=== PATIENT | male | born 1970 | race Hispanic/Latino ===

== ENCOUNTER 2017-03-10 21:26 | Observation (INO) | payer SELFPAY ==
[2017-03-10] MEDS ORDERED: Nitroglycerin 2% Ointment 1 INCH/1 GM Packet ONE (21:51)
[2017-03-10 21:56] LABS: #Basophils 0.1 thou/uL (0.0-0.2); #Eosinphils 0.1 thou/uL (0.0-0.7); #Lymphocytes 4.3 thou/uL (1.20-3.40); #Monocytes 0.5 thou/uL (0.11-0.59); #Neutrophils 4.3 thou/uL (1.40-6.50); %Basophils 1.2 % (0.0-1.0); %Eosinophils 1.4 % (0.0-10.0); %Lymphocytes 45.7 % (21.0-51.0); %Monocytes 5.5 % (0.0-10.0); Hematocrit 46.8 % (42.0-52.0); Mean Platelet Volume 6.6 fL (7.4-10.4); Red Blood Cell (RBC) Count 5.28 mill/uL (4.70-6.10); White Blood Cell (WBC) Count 9.3 thou/uL (4.8-10.8)
--- NOTE | 2017-03-10 22:02 | RAD ---
PORTABLE CHEST ONE VIEW 03/10/17 at 9:54 p.m. HISTORY: Chest pain, shortness of breath. FINDINGS: The heart size is borderline. The right hemidiaphragm is elevated. No focal areas of consolidation, pneumothorax, rebecca pulmonary edema or pleural effusions are seen. IMPRESSION: No acute process. POS: [facility]
[2017-03-10 22:10] LABS: ALT (SGPT) 199 U/L (8-55); AST (SGOT) 103 U/L (5-34); Alkaline Phosphatase 119 U/L (40-150); Anion Gap 16 mmol/L (10-20); BUN (Urea Nitrogen) 19 mg/dL (8.9-20.6); Bilirubin, Total 0.6 mg/dL (0.2-1.2); CK (CPK) 256 U/L (30-200); Calc. Creatinine Clearance 0 mL/min (70-130); Calcium 10.1 mg/dL (7.8-10.44); Carbon Dioxide 26 mmol/L (22-29); Chloride 102 mmol/L (98-107); Estimated GFR-MDRD 90; Globulin 3.6 g/dL (2.4-3.5); Lipase 59 U/L (8-78); Protein, Total 8.1 g/dL (6.0-8.3)
[2017-03-10 22:11] LABS: Troponin I Less than 0.010 ng/mL (< 0.028)
[2017-03-11 01:10] LABS: Troponin I Less than 0.010 ng/mL (< 0.028)
[2017-03-11 03:17] VITALS: BMI 27.1
[2017-03-11] MEDS ORDERED: Morphine 2 MG/ML SYRINGE SLOW IVP PRN (03:19)
[2017-03-11 04:57] LABS: #Basophils 0.1 thou/uL (0.0-0.2); #Eosinphils 0.1 thou/uL (0.0-0.7); #Lymphocytes 3.5 thou/uL (1.20-3.40); #Monocytes 0.6 thou/uL (0.11-0.59); #Neutrophils 3.9 thou/uL (1.40-6.50); %Basophils 0.9 % (0.0-1.0); %Eosinophils 0.9 % (0.0-10.0); %Lymphocytes 43.1 % (21.0-51.0); Hematocrit 46.7 % (42.0-52.0); Red Blood Cell (RBC) Count 5.08 mill/uL (4.70-6.10); White Blood Cell (WBC) Count 8.2 thou/uL (4.8-10.8)
[2017-03-11] MEDS ORDERED: HumaLOG 300 UNITS/3 ML VIAL SC PRN ×2 (05:14)
[2017-03-11] MEDS ORDERED: Dextrose 5% in Water 1,000 ML IV PRN (05:14)
[2017-03-11] MEDS ORDERED: Dextrose 50% Abboject 50 ML SYRINGE SLOW IVP PRN (05:14)
[2017-03-11 05:18] LABS: ALT (SGPT) 166 U/L (8-55); AST (SGOT) 80 U/L (5-34); Alkaline Phosphatase 90 U/L (40-150); Anion Gap 12 mmol/L (10-20); BUN (Urea Nitrogen) 19 mg/dL (8.9-20.6); Bilirubin, Total 0.5 mg/dL (0.2-1.2); Calc. Creatinine Clearance 144 mL/min (70-130); Calcium 9.4 mg/dL (7.8-10.44); Carbon Dioxide 29 mmol/L (22-29); Chloride 103 mmol/L (98-107); Estimated GFR-MDRD Greater than 90; Globulin 3.1 g/dL (2.4-3.5); Protein, Total 7.3 g/dL (6.0-8.3)
[2017-03-11] MEDS ORDERED: Acetaminophen 325 MG TAB PO PRN (06:24)
[2017-03-11] MEDS ORDERED: Loperamide HCl 2 MG CAP PO PRN (07:36)
[2017-03-11] MEDS ORDERED: Ondansetron HCl/PF 4 MG/2 ML Vial IVP PRN (07:36)
[2017-03-11] MEDS ORDERED: Zolpidem Tartrate 5 MG TAB PO PRN (07:36)
[2017-03-11] MEDS ORDERED: Milk Of Magnesia 30 ML UDCUP PO PRN (07:36)
[2017-03-11] MEDS ORDERED: Ondansetron ODT 4 MG TAB PO PRN (07:36)
[2017-03-11] MEDS ORDERED: Senokot 8.6 MG TAB PO PRN (07:36)
[2017-03-11] MEDS ORDERED: HYDROcodone/Acetaminophen 5/325 mg Tablet PO PRN (07:36)
[2017-03-11] MEDS ORDERED: Mag-Al 1200 mg/1200 mg/30 ML UDCUP PO PRN (07:36)
--- NOTE | 2017-03-11 08:18 | ULT ---
PRELIMINARY REPORT/[facility]/EMERGENCY AFTER HOURS PROCEDURE: EXAM: US Abdomen Limited, Right Upper Quadrant CLINICAL HISTORY: 47 years old, male; Right upper quadrant (ruq) andabd pain, n / v, SOB TECHNIQUE: Real-time ultrasound of the right upper quadrant with image documentation. COMPARISON: No relevant prior studies available. FINDINGS: Liver: Liver fatty infiltration. Patent portal vein with hepatopetal flow. No intrahepatic bile duct dilation. Gallbladder: Contracted gallbladder. Cholelithiasis. No gallbladder wall thickening or pericholecyst ic fluid. Common bile duct: Unremarkable as visualized. No stones. No dilation. Pancreas: Pancreatic tail is not well-visualized, otherwise normal pancreas. Right kidney: Unremarkable. No stones. No solid mass. No hydronephrosis. Inferior vena cava: Normal caliber upper IVC. IMPRESSION: 1. Contracted gallbladder with cholelithiasis. No gallbladder wall thickening or pericholecystic flu id. 2. No biliary tract dilatation. Thank you for allowing us to participate in the care of your patient. Dictated and Authenticated by: Martin Tripathi MD 03/11/2017 12:21 AM Central Time ([place] \T\ [place]) FINAL REPORT GALLBLADDER ULTRASOUND: FINDINGS/IMPRESSION: I agree with the above-provided preliminary interpretation provided above. Cholelithiasis. Gallbladder is contracted. Heterogeneous echotexture of the liver may relate to fatty infiltration. Correlate with hepatic fun ction enzymes. POS: [facility]
[2017-03-11] MEDS ORDERED: Fentanyl 250 MCG/5 ML VIAL ONE (10:08)
[2017-03-11] MEDS ORDERED: Midazolam HCl 2 mg/2 ml Vial ONE (10:08)
[2017-03-11] MEDS ORDERED: Bupivacaine HCl 0.5%/Epinephrine 1:200,000/PF 30 ml Vial ONE (10:10)
[2017-03-11] MEDS ORDERED: Iothalamate Meglumine 60% 50 ML VIAL FS ONE (10:10)
[2017-03-11] MEDS: Docusate 100 MG CAP PO SCH ×2 (10:29→20:45)
[2017-03-11] MEDS: Famotidine/PF 20 mg/2ml Vial SLOW IVP SCH ×2 (10:29→20:47)
[2017-03-11] MEDS ORDERED: Promethazine HCl 25 MG/ML VIAL SLOW IVP PRN (10:36)
[2017-03-11] MEDS ORDERED: HYDROmorphone 2 MG/ML VIAL SLOW IVP PRN (10:36)
[2017-03-11] MEDS ORDERED: Meperidine HCl/PF 25 MG/ML VIAL SLOW IVP PRN (10:36)
[2017-03-11] MEDS ORDERED: Morphine Sulfate 2 MG/ML SYRINGE SLOW IVP PRN (10:36)
[2017-03-11] MEDS ORDERED: CEFAZOLIN/Water 2 GM/20 ML SYRINGE ONE (11:02)
[2017-03-11] MEDS ORDERED: Ketorolac Tromethamine 30 MG/ML VIAL ONE (11:21)
[2017-03-11] MEDS ORDERED: Lidocaine 1% PF 5 ML VIAL ONE (11:21)
[2017-03-11] MEDS ORDERED: Propofol 200 MG/20 ML VIAL ONE (11:21)
[2017-03-11] MEDS ORDERED: Ondansetron HCl/PF 4 MG/2 ML Vial ONE (11:21)
[2017-03-11] MEDS ORDERED: Glycopyrrolate 0.2 MG/ML 5 ML SYRINGE ONE (11:21)
[2017-03-11] MEDS ORDERED: Dexamethasone 20 MG/5 ML VIAL ONE (11:21)
--- NOTE | 2017-03-11 12:14 | SS ---
PRIMARY CARE PHYSICIAN: Arlette Medellin M.D. REASON FOR ADMISSION: Right upper quadrant and epigastric abdominal pain. HISTORY OF PRESENT ILLNESS: A 47-year-old male with a history of diabetes on metformin therapy, who came to emergency room with complaint of epigastric abdominal pain as well as right upper quadrant pain. This is ongoing for last 2-3 days. Patient reports that the pain is in epigastric location associated with burping and bloating sensation. He also gets right upper quadrant pain. He feels nausea, but no vomiting. He did not have any fever or chills at home. After food, his symptoms getting little bit worse. He denies any diarrhea, but he does feel constipated. The patient never had any exertion related chest pain, palpitations, dizziness, or syncope. He denies any orthopnea, PND or leg swelling. This patient initially went to [facility] Room where he was evaluated. He had routine blood test done which showed abnormal LFT and cholelithiasis. Subsequently, he was transferred to our hospital. The patient had serial cardiac enzyme and that were negative. His EKG was normal and his telemetry remained normal. The patient was having persistent epigastric as well as right upper quadrant pain. We consulted General Surgery for evaluation. We tried to do HIDA scan, but patient is planned for surgery. REVIEW OF SYSTEMS: The following complete review of systems was negative, unless otherwise mentioned in the HPI or below: Constitutional: Weight loss or gain, ability to conduct usual activities. Skin: Rash, itching. Eyes: Double vision, pain. ENT/Mouth: Nose bleeding, neck stiffness, pain, tenderness. Cardiovascular: Palpitations, dyspnea on exertion, orthopnea. Respiratory: Shortness of breath, wheezing, cough, hemoptysis, fever or night sweats. Gastrointestinal: Poor appetite, abdominal pain, heartburn, nausea, vomiting, constipation, or diarrhea. Genitourinary: Urgency, frequency, dysuria, nocturia. Musculoskeletal: Pain, swelling. Neurologic/Psychiatric: Anxiety, depression. Allergy/Immunologic: Skin rash, bleeding tendency. Please see my HPI for pertinent positive and negative. All other review of systems reviewed and negative except as mentioned in the HPI. PAST MEDICAL HISTORY: Diabetes type 2 on metformin therapy. PAST SURGICAL HISTORY: Reviewed and negative. PAST PSYCHIATRIC HISTORY: Reviewed and negative. SOCIAL HISTORY: The patient is a former smoker. He quit smoking a few years ago. He smoked about 20 years, but he denies any alcohol abuse. He denies any other illicit drug abuse. 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 FAMILY HISTORY: Father had stroke. Mother has diabetes. EMERGENCY ROOM COURSE: Patient was given aspirin and nitro patch. ALLERGIES: No known drug allergies. CURRENT HOME MEDICATION: Metformin 500 mg p.o. b.i.d. PHYSICAL EXAMINATION: VITAL SIGNS: On arrival, blood pressure 154/120, pulse 99, respiratory rate 20 , temperature 98.6, saturation 98% on room air, and weight 90.7 kilograms. GENERAL: The patient is currently alert, awake, no obvious acute distress. HEAD: Normocephalic, atraumatic. EYES: Pupils round and reactive to light. Extraocular muscles intact. ENT: Oropharynx within normal limits. Moist mucous membranes. No oral lesions , no pharyngeal erythema, no exudate. NECK: Supple, range of motion is normal. No meningeal signs of irritation. LUNGS: Clear to auscultation without any rhonchi or rales. CARDIAC: S1 and S2 regular without any murmur. ABDOMEN: The patient does have epigastric tenderness as well as right upper quadrant tenderness, no organomegaly, no mass, no suprapubic tenderness. No peritoneal sign. No guarding, no rigidity, no rebound. BACK: Examination unremarkable. No CVA tenderness. EXTREMITIES: Upper extremity passive movements of all joints are normal. Lower extremity, no edema, no calf tenderness. Good peripheral pulsation. SKIN: No skin rash. HEMATOLOGICAL SYSTEM: No lymphadenopathy. NEUROLOGIC: Nonfocal examination. The patient moves all 4 limbs. Plantar bilateral flexor. PSYCHIATRIC: Normal affect. IMAGING AND SIGNIFICANT LABORATORY DATA: 1. EKG based on my review reveals normal sinus rhythm without any acute ischemic changes. Chest x-ray based on my review, no acute cardiopulmonary process. Abdominal ultrasound showed cholelithiasis, contracted gallbladder. 2. CBC: WBC 9.3, hemoglobin 16.0, platelet 274. 3. BMP: Sodium 140, potassium 3.7, chloride 102, carbon dioxide 26, BUN 19, creatinine 0.91, glucose 151, and calcium 10.1. 4. LFT: AST 103, ALT 199, alkaline phosphatase 119, CK 256, albumin 4.5. 5. Cardiac enzymes negative x2. 6. Lipase 59. ASSESSMENT AND PLAN/IMPRESSION: 1. Epigastric abdominal pain as well as right upper quadrant abdominal pain. This patient has most likely underlying gallbladder pathology. This patient has abnormal LFT along with cholelithiasis. Underlying chronic cholecystitis is the possibility. At this point, we will discontinue Cardiology consult, which was placed by night physician. Patient's cardiac etiology already excluded with negative cardiac enzymes. This patient does not have any angina. His main problem is gallbladder pathology. We will consult General Surgery given patient will likely need a laparoscopic cholecystectomy. We will try to do HIDA scan if possible. Otherwise, we will go for laparoscopic cholecystectomy. After laparoscopic cholecystectomy, we will consider discharging him home if surgeons okay with oral medication. 2. The patient is complaining of testicular pain and that is why we will do ultrasound testicle to rule out any pathology. Based on my genitalia examination with him, patient's testicle appears normal, but he feels intermittently swelling in right testicle. 3. Diabetes type 2. We will continue insulin as per sliding scale protocol. Diabetic diet will be given. The patient will resume his metformin therapy upon discharge. 4. Abnormal liver function tests, likely related with chronic cholecystitis. We will check hepatitis profile to rule out acute hepatitis. Most likely, this patient's abnormal LFT related with gallbladder pathology. 5. Deep venous thrombosis prophylaxis not needed because we are expecting discharge in 24 hours, maybe later on today if possible. 6. Gastrointestinal prophylaxis. Patient is already on Pepcid therapy. 7. Code status: The patient is FULL CODE. The patient's is surrogate decision maker. Disposition plan based on clinical course DATE OF ADMISSION: 03/11/2017 DATE OF DISCHARGE: 03/12/2017 DISCHARGE DISPOSITION: Home. PRIMARY DISCHARGE DIAGNOSES: 1. Epigastric and right upper quadrant abdominal pain, likely due to chronic cholecystitis. 2. Abnormal liver function tests due to problem #1. SECONDARY DISCHARGE DIAGNOSIS: Diabetes type 2. PRIMARY PROCEDURE/OPERATION: Laparoscopic cholecystectomy. RADIOLOGIC INVESTIGATION: Abdominal ultrasound and chest x-ray. SIGNIFICANT LABORATORY DATA: The patient has AST and ALT abnormality; otherwise CBC and BMP are normal. DISCHARGE MEDICATIONS: The patient will continue metformin 500 mg p.o. b.i.d. The patient will be given Pepcid 20 mg p.o. b.i.d., Tylenol #3 one tablet q.6 hourly p.r.n. for pain, and Zofran 4 mg q.6 hourly p.r.n. for nausea. CONTRAINDICATIONS: None. CODE STATUS: FULL CODE. INPATIENT [employer]: Dr. Chester TEST RESULTS PENDING ON DISCHARGE: None. ALLERGIES: No known drug allergy. DISCHARGE PLAN: Post hospital, the patient will follow up with Dr. Chester as instructed. The patient will follow with primary care physician as well. HOSPITAL COURSE: Please see my HPI from today for further details. The patient was admitted for epigastric and right upper quadrant pain. The patient had abnormal LFT. We suspected chronic cholecystitis with cholelithiasis. Patient consulted by general surgeon and they are planning to do laparoscopic cholecystectomy. After that procedure, patient if doing well, then he can be discharged later on today. The patient was complaining of testicular pain and that is why we did a testicular ultrasound. Overall, the patient is medically stable for discharge once problem is taken care of. MAURICIO
--- NOTE | 2017-03-11 13:07 | CON ---
DATE OF CONSULTATION: 03/11/2017 REQUESTING PHYSICIAN: Dr. Ruddy Tinsley HISTORY OF PRESENT ILLNESS: This is a 47-year-old man who presented [facility] with a 3 day history of epigastric to right upper quadrant abdominal pain which was preceded by sh ortness of breath. The pain started approximately 4 hours after a meal. The pain was associated wi th some nausea, but no emesis. The patient presented due to worsening abdominal pain. He denies any fevers or chills. He reports some bloating and frequent flatulence. He denies any hematochezia or melena. PAST MEDICAL HISTORY: Pertinent for type 2 diabetes mellitus. PAST SURGICAL HISTORY: The patient denies any previous surgeries. SOCIAL HISTORY: The patient is and lives at home with his . He admits to approximately a 57-[id number]-veem cigarette smoking, but has not smoked over the last 2 years. He admits to occasiona l intake of ethanol in moderate amounts. He denies any illicit drug abuse. FAMILY HISTORY: Notable for diabetes mellitus, in various members of the extended family. Mother had essential hypertension and his father, heart disease. Denies any family history of cance r. PREHOSPITAL MEDICATION: Includes metformin 500 mg p.o. b.i.d. ALLERGIES: Patient denies any known drug allergies. REVIEW OF SYSTEMS: Ten point review of system is essentially unremarkable except for as stated in p ast medical history and chief complaint. PHYSICAL EXAMINATION: GENERAL: This reveals a 47-year-old normally developed man who is otherwise coherent and interactiv e and appears stated age. The patient is alert and oriented x3, appears to be in no acute distress at the time of my evaluation. VITAL SIGNS: Today includes blood pressure 134/85, pulse 77, respiration rate 18, maximum temperatu re in the last 24 hours is 98.6 degrees Fahrenheit, oxygen saturation 98% on room air. HEENT: Reveals normocephalic and atraumatic. Pupils equal, round, and reactive to light and accomm odation. Extraocular muscles are intact bilaterally. No sclerae icterus is present. Oral mucosa i s pink and moist. No lesions are noted. NECK: Supple. No palpable lymphadenopathy or thyromegaly present. HEART: Reveals regular rate and rhythm, no murmurs or gallops auscultated. LUNGS: Clear to auscultation bilaterally. Breathing is regular and unlabored. ABDOMEN: Soft and obese. He has right upper quadrant tenderness to palpation. He has a positive M urphy sign. Liver and spleen are otherwise nonpalpable below costal margins. EXTREMITIES: Reveals 2+ radial and pedal pulses bilaterally. No ankle edema is present. NEUROLOGIC: Reveals no focal deficits present. PERTINENT LABORATORY DATA: Includes CBC with 8200 white blood cells, hemoglobin 15.5, hematocrit is 46.7, platelet count is 269,000. Metabolic profile today includes sodium 140, potassium 3.9, chloride is 103, bicarbonate is 29, BUN 19, creatinine 0.83, glucose 112. LFTs today includes total bilirubin 0.5, AST 80, ALT 166, alkaline phosphatase 90, this is in contra st to that of yesterday with total bilirubin 0.6, AST 103, ALT 199, and alkaline phosphatase is 119. Serum lipase yesterday were normal at 59. I have also personally reviewed the abdominal ultrasound which is remarkable for multiple intralumin al gallstones in a contracted gallbladder. There is no gallbladder wall thickening or pericholecyst ic fluid. Common bile duct is essentially normal in diameter for this patient's age at 4.7 mm. IMPRESSION: Acute cholecystitis with cholelithiasis. RECOMMENDATIONS: Laparoscopic cholecystectomy with intraoperative cholangiogram. The above findings and plan are discussed with the patient and his at bedside. I have also adv ised the patient of the risks and benefits of the proposed surgery. Risks include, but not limited to bleeding, infection, injury to bile duct or surrounding structures. The patient indicates understanding of this risk as advised and has given consent for the surgical i ntervention. Thank you again, Dr. Tinsley for allowing me to participate in the care of this patient.
--- NOTE | 2017-03-11 13:18 | RAD ---
OPERATIVE CHOLANGIOGRAM: 03/11/17 HISTORY: Intraoperative films. These views show filling of a nondilated common bile duct with emptying into the duodenum. IMPRESSION: Unremarkable operative cholangiogram. POS: [facility]
[2017-03-11] MEDS ORDERED: traMADol HCl 50 MG TAB PO PRN ×2 (13:33)
[2017-03-11] MEDS ORDERED: Promethazine HCl 25 MG/ML VIAL ONE (13:43)
[2017-03-11] MEDS ORDERED: Acetaminophen 650 MG Suppository PR SCH (13:45)
--- NOTE | 2017-03-11 14:25 | OP ---
DATE OF OPERATION: 03/11/2017 PREOPERATIVE DIAGNOSIS: Acute cholecystitis with cholelithiasis. POSTOPERATIVE DIAGNOSIS: Acute cholecystitis with cholelithiasis. PROCEDURES PERFORMED: Laparoscopic cholecystectomy with intraoperative cholangiogram. SURGEON: Andrew Chester D.O. ANESTHESIA: General endotracheal. ESTIMATED BLOOD LOSS: 10 mL FLUIDS GIVEN: 900 mL crystalloids. SPONGE AND INSTRUMENT COUNT: Certified as correct x2. COMPLICATIONS: None apparent at the time of operation. INDICATIONS FOR PROCEDURE: A 47-year-old man presented with abdominal pain. Clinical and radiograp hic examination was consistent with acute cholecystitis with cholelithiasis for which patient was br ought to the operating room for cholecystectomy. LFTs were abnormal. Intraoperative cholangiogram was therefore performed. Findings are consistent with gallbladder in the usual anatomic location, partially encased by omenta l adhesions. Cholangiogram reveals no filling defects. DESCRIPTION OF PROCEDURE: Informed consent obtained from the patient, who was brought to the operat ing room and placed in supine position. Following general anesthesia, abdomen was sterilely prepped and draped in the usual fashion. The skin below the umbilicus was infiltrated with 0.25% Marcaine with epinephrine. A small curvilinear infraumbilical incision was made using an 11 scalpel. Umbili deedee stalk was grasped with Yasemin's and elevated. Veress needle was inserted through the incision a nd placed in the peritoneal cavity through which the abdomen was insufflated with 3 liters of CO2 ga s. Intra-abdominal pressure was noted at 1 mmHg. Following abdominal insufflation, Veress needle w as removed and 5 mm trocar inserted through the incision and placed in the peritoneal cavity. This was performed under laparoscopy using the Visiport. Laparoscopy confirmed proper placement of the p ort, no injuries to underlying structures. An additional laparoscopy reveals gallbladder in the usu al anatomic location partially encased by omental adhesions. Under laparoscopy, a 12 mm epigastric and two 5 mm right lateral subcostal ports were placed after the overlying skin was infiltrated with 0.25% Marcaine with epinephrine and appropriate incisions made. The patient was placed in the reverse Trendelenburg position, rotated to his left. I introduced the [place] dissector with cautery, using this to take down omental adhesions. A Prestige grasper was then introduced through the right lateral subcostal port grasping the fundus of the gallbladder, wh ich was elevated cephalad. Once the omental adhesions were dissected from the remainder of the gall bladder. A second Prestige grasper was introduced through the right medial subcostal port grasping the Lin's pouch, which was retracted laterally. The cystic duct was carefully dissected free from surrounding structures at the triangle of Calot. A single clip was applied at the junction of the cystic duct and gallbladder. The cystic artery was dissected free from surrounding structures and divided between clips. Two cli ps were applied proximally and one clip at the junction of the cystic artery and gallbladder. Cysto patsy was then made using an EndoShears proximal to the securing cystic ductal clip. Cholangiocatheter was introduced into the right upper quadrant and inserted into the cystic ductal l umen. Cholangiogram was completed using 10 mL of full strength Conray contrast. Total of fluoroscopy time was 33 seconds. No filling defects were noted. Following cholangiography, the securing clip was removed and the catheter was removed from the perit chaves cavity. The cystic duct was then divided between clips, applying two clips proximally. Gallbladder itself w as removed from the liver bed using cautery with good hemostasis. Gallbladder was delivered of the abdominal cavity using an EndoCatch. An operative site was inspected for good hemostasis. Finding no other pathology, laparoscopy was terminated. Fascia of the epigastric port site was closed using 0 Vicryl suture and Endo closure device under laparoscopy. The abdomen was desufflated. All ports and instruments removed and accounted for. Skin incisions were closed using 4-0 Monocryl suture in subcuticular fashion. Dermabond was applied over the incisions. The patient tolerated this proced ure without any apparent complications and was returned to the recovery room in satisfactory conditi on.
[2017-03-11] MEDS: Acetaminophen 325 MG TAB PO SCH ×2 (16:23→20:45)
[2017-03-11] MEDS: Ketorolac Tromethamine 30 MG/ML VIAL IVP SCH (17:12)
--- NOTE | 2017-03-11 17:22 | ULT ---
SCROTAL ULTRASOUND WITH DOPPLER: DATE: 03/11/17. PROVIDED CLINICAL HISTORY: Testicular pain. FINDINGS: The right testicle measures about 4.7 x 2.9 x 2.4 cm and demonstrates a normal gentile scale sonographi c appearance. The right epididymis appears normal. The left testicle measures about 4.2 x 3.4 x 2.7 cm and demonstrates no evidence for mass. There is a small focus of increased echogenicity within the left testicle which may reflect dystrophic calci fication. A small epididymal head cyst is seen. Color Doppler and spectral analysis of the testicu lar waveforms demonstrates normal flow bilaterally. No significant hydrocele on either side. IMPRESSION: No evidence for an acute process. POS: [facility]
[2017-03-11 19:21] LABS: Bilirubin Negative (Negative); Blood, Urine Negative (Negative); Glucose, Urine (Dipstick) 250 mg/dL (Negative); Ketone, Urine Negative (Negative); Nitrite Negative (Negative); Protein, Urine (Dipstick) Negative (Neg-Trace); Urobilinogen 0.2 mg/dL (0.2-1.0)
[2017-03-11 19:23] LABS: Bacteria/HPF None Seen HPF (None Seen); Hyaline Casts/LPF 0-3 HYALINE CAST LPF (0-3 Hyaline); RBC/HPF 0-3 HPF (0-3); Squamous Epithelial 0-3 HPF (0-3); WBC/HPF 0-3 HPF (0-3)
[2017-03-12] MEDS: Ketorolac Tromethamine 30 MG/ML VIAL IVP SCH ×2 (00:10→05:48)
[2017-03-12] MEDS: Acetaminophen 325 MG TAB PO SCH ×2 (02:16→10:22)
[2017-03-12 05:14] LABS: #Lymphocytes 2.7 thou/uL (1.20-3.40); %Eosinophils 0.1 % (0.0-10.0); %Lymphocytes 19.9 % (21.0-51.0); %Monocytes 7.1 % (0.0-10.0); Hematocrit 45.3 % (42.0-52.0); Mean Platelet Volume 6.7 fL (7.4-10.4); Red Blood Cell (RBC) Count 4.91 mill/uL (4.70-6.10); White Blood Cell (WBC) Count 13.7 thou/uL (4.8-10.8)
[2017-03-12 05:24] LABS: ALT (SGPT) 161 U/L (8-55); AST (SGOT) 80 U/L (5-34); Alkaline Phosphatase 68 U/L (40-150); Anion Gap 11 mmol/L (10-20); BUN (Urea Nitrogen) 19 mg/dL (8.9-20.6); Bilirubin, Total 0.9 mg/dL (0.2-1.2); Calc. Creatinine Clearance 135 mL/min (70-130); Calcium 9.2 mg/dL (7.8-10.44); Carbon Dioxide 27 mmol/L (22-29); Chloride 103 mmol/L (98-107); Estimated GFR-MDRD Greater than 90; Globulin 2.9 g/dL (2.4-3.5); Protein, Total 6.9 g/dL (6.0-8.3)
[2017-03-12 07:51] VITALS: BP 121/74; TEMP 97.4
[2017-03-12] MEDS: Docusate 100 MG CAP PO SCH (09:18)
[2017-03-12] MEDS: Famotidine/PF 20 mg/2ml Vial SLOW IVP SCH (09:18)
--- NOTE | 2017-03-12 10:45 | PDOC.PN ---
- Subjective Encounter Start Date: 03/12/17 Encounter Start Time: 07:05 -: old records requested/rev Patient seen and examined. No new complaints. No overnight events - Objective Resuscitation Status: Resuscitation Status FULL:Full Resuscitation MAR Reviewed: Yes Vital Signs & Weight: Vital Signs (12 hours) Temp Pulse Resp BP Pulse Ox 03/12/17 08:00 97.4 F L 72 18 03/12/17 07:50 97.4 F L 72 18 121/74 98 03/12/17 04:20 98.2 F 86 18 121/77 95 Weight Admit Weight 199 lb 11.2 oz Weight 194 lb 8 oz I&O: 03/11/17 03/12/17 03/13/17 06:59 06:59 06:59 Intake Total 100 760 Balance 100 760 Result Diagrams: 03/12/17 04:33 03/12/17 04:33 Additional Labs: Accuchecks 03/11/17 03/11/17 20:16 16:55 POC Glucose 155 H 131 H EKG Reviewed by me: Yes (nsr) Phys Exam - Physical Examination Constitutional: NAD HEENT: PERRLA, moist MMs, sclera anicteric Neck: no JVD, supple Respiratory: no wheezing, no rales, no rhonchi Cardiovascular: RRR, no significant murmur, no rub Gastrointestinal: soft, non-tender, no distention, positive bowel sounds Musculoskeletal: no edema, pulses present Neurological: non-focal, normal sensation, moves all 4 limbs Psychiatric: normal affect, A&O x 3 Skin: no rash, normal turgor Dx/Plan (1) Abnormal LFTs Code(s): R79.89 - OTHER SPECIFIED ABNORMAL FINDINGS OF BLOOD CHEMISTRY Status : Acute (2) S/P laparoscopic cholecystectomy Code(s): Z90.49 - ACQUIRED ABSENCE OF OTHER SPECIFIED PARTS OF DIGESTIVE TRACT Status: Acute (3) Cholelithiases Code(s): K80.20 - CALCULUS OF GALLBLADDER W/O CHOLECYSTITIS W/O OBSTRUCTION Status: Chronic (4) Diabetes type 2, controlled Code(s): E11.9 - TYPE 2 DIABETES MELLITUS WITHOUT COMPLICATIONS Status: Chronic - Plan cont current plan of care, plan discussed w/ family * medication reviewed as below * symptomatic treatment * see discharge patricia. Review of Systems - Review of Systems ENT: negative: Ear Pain, Ear Discharge, Nose Pain, Nose Discharge, Nose Congestion, Mouth Pain, Mouth Swelling, Throat Pain, Throat Swelling, Other Respiratory: negative: Cough, Dry, Shortness of Breath, Hemoptysis, SOB with Excertion, Pleuritic Pain, Sputum, Wheezing Cardiovascular: negative: Chest Pain, Palpitations, Orthopnea, Paroxysmal Noc. Dyspnea, Edema, Light Headedness, Other Gastrointestinal: negative: Nausea, Vomiting, Abdominal Pain, Diarrhea, Constipation, Melena, Hematochezia, Other Genitourinary: negative: Dysuria, Frequency, Incontinence, Hematuria, Retention , Other Musculoskeletal: negative: Neck Pain, Shoulder Pain, Arm Pain, Back Pain, Hand Pain, Leg Pain, Foot Pain, Other - Medications/Allergies Allergies/Adverse Reactions: Allergies Allergy/AdvReac Type Severity Reaction Status Date / Time No Allergy Information Allergy Verified 03/11/17 03:26 Available Medications: Current Medications Acetaminophen (Tylenol) 650 mg PO Q6H [facility] Last Admin: 03/12/17 10:22 Dose: 650 mg Hydrocodone Bitart/Acetaminophen ([place] 5/325) 1 tab PO Q4H PRN PRN Reason: Moderate Pain (4-6) Al Hydroxide/Mg Hydroxide (Maalox) 30 ml PO Q6H PRN PRN Reason: Heartburn or Indigestion Dextrose/Water (Dextrose 50%) 25 gm SLOW IVP PRN PRN PRN Reason: Hypoglycemia Docusate Sodium (Colace) 100 mg PO BID [facility] Last Admin: 03/12/17 09:18 Dose: 100 mg Famotidine (Pepcid) 20 mg SLOW IVP Q12HR [facility] Last Admin: 03/12/17 09:18 Dose: 20 mg Glucagon (Glucagon) 1 mg IM PRN PRN PRN Reason: Hypoglycemia Dextrose/Water (D5w) 1,000 mls @ 0 mls/hr IV .Q0M PRN; As Directed PRN Reason: Hypoglycemia Insulin Human Lispro (Humalog) 0 units SC .MODERATE SLIDING SC PRN PRN Reason: Moderate Correctional Scale Insulin Human Lispro (Humalog) 0 units SC .BEDTIME SLIDING SC PRN PRN Reason: Bedtime Correctional Scale Ketorolac Tromethamine (Toradol) 30 mg IVP Q6HR [facility] Stop: 03/16/17 18:01 Last Admin: 03/12/17 05:48 Dose: 30 mg Loperamide HCl (Imodium) 2 mg PO PRN PRN PRN Reason: Diarrhea/Loose Stools Magnesium Hydroxide (Milk Of Magnesium) 30 ml PO DAILYPRN PRN PRN Reason: Constipation Ondansetron HCl (Zofran Odt) 4 mg PO Q6H PRN PRN Reason: Nausea/Vomiting Ondansetron HCl (Zofran) 4 mg IVP Q6H PRN PRN Reason: Nausea/Vomiting Senna (Senokot) 2 tab PO HSPRN PRN PRN Reason: Constipation Sodium Chloride (Flush - Normal Saline) 10 ml IVF Q12HR [facility] Last Admin: 03/12/17 09:18 Dose: 10 ml Sodium Chloride (Flush - Normal Saline) 10 ml IVF PRN PRN PRN Reason: Saline Flush Last Admin: 03/12/17 05:47 Dose: 10 ml Tramadol HCl (Ultram) 50 mg PO Q6H PRN PRN Reason: Moderate Pain (4-6) Tramadol HCl (Ultram) 100 mg PO Q6H PRN PRN Reason: Severe Pain (7-10) Last Admin: 03/11/17 20:44 Dose: 100 mg Zolpidem Tartrate (Ambien) 5 mg PO HSPRN PRN PRN Reason: Insomnia
--- NOTE | 2017-03-12 12:41 | DIS ---
DATE OF ADMISSION: 03/11/2017 DATE OF DISCHARGE: 03/12/2017 PRIMARY CARE PHYSICIAN: Arlette Medellin M.D. DISCHARGE DISPOSITION: Home. PRIMARY DISCHARGE DIAGNOSES: 1. Right upper quadrant and epigastric abdominal pain due to chronic cholecystitis. 2. Status post laparoscopic cholecystectomy. 3. Abnormal liver function tests due to problem #1. SECONDARY DISCHARGE DIAGNOSES: Diabetes type 2, cholelithiasis. PRIMARY PROCEDURE/OPERATION: Laparoscopic cholecystectomy. RADIOLOGICAL INVESTIGATION: Cholangiogram operative was unremarkable. Testicular ultrasound was do ne which showed no acute process. Chest x-ray normal. SIGNIFICANT LABORATORY DATA: Hemoglobin 15.2, creatinine 0.86, AST 80, ALT 161, alkaline phosphatas e 68. Cardiac enzymes negative. Urinalysis normal. Hepatitis profile negative. DISCHARGE MEDICATIONS: Tylenol #3 one tablet q.6 hourly p.r.n. for pain, Pepcid 20 mg p.o. b.i.d., Zofran 4 mg q.6 hourly p.r.n., and metformin 500 mg p.o. b.i.d. CONTRAINDICATIONS: None. CODE STATUS: FULL CODE. INPATIENT DRUM WORKER: Dr. Chester who did laparoscopic cholecystectomy. TEST RESULTS PENDING ON DISCHARGE: None. ALLERGIES: No known drug allergies. DISCHARGE PLAN: Post hospital, the patient is advised to follow up with Dr. Chester in 2 weeks. HOSPITAL COURSE: A 47-year-old male who was admitted for epigastric and right upper quadrant pain, he was having burping and nausea. This patient was having symptomatic cholelithiasis. We consulted general surgeon. He also had abnormal LFT. General surgeon took him for laparoscopic cholecystect bettina and after that, the patient's symptomatology significantly improved. Post-procedure, the patien t was observed overnight in hospital. He was also complaining of some testicular pain and that is w hy ultrasound was done which was normal. Above-mentioned medication is given on discharge. The patient is seen and examined at bedside today. Please see my progress note from today for furth er details.
== END 2017-03-12 12:10 | disposition home or self-care (01) ==
LOC: SCSER 21:26 → 2SW 03-11 03:02
PROVIDERS: ADMIT Internal Medicine; ATTEND Internal Medicine
PROC: 0FT44ZZ Resection of Gallbladder, Percutaneous Endoscopic Approach (ICD-10-PCS; principal; 2017-03-12)
PROC: [UNRECOGNIZED PROCEDURE] (2017-03-12)
DX: K81.1 Chronic cholecystitis (principal); R94.5 Abnormal results of liver function studies; E11.9 Type 2 diabetes mellitus without complications; Z79.84 Long term (current) use of oral hypoglycemic drugs; Z79.899 Other long term (current) drug therapy; Z87.891 Personal history of nicotine dependence; Z83.3 Family history of diabetes mellitus; Z82.3 Family history of stroke
CPT/HCPCS: 36415; 36416; 47532; 71010; 76705; 76870; 80053; 80074; 81001; 82553; 83036; 83690; 84484; 85025; 88304; 93005; 93976; 96374; 96375; 96376; A4216; G0378; J0670; J1100; J1885; J2001; J2250; J2405; J2550; J2704; J3010; Q9961; S0028

== ENCOUNTER 2017-11-08 12:07 | Emergency (ER) | payer OTHER | END 2017-11-08 12:30 | disposition home or self-care (01) | LOC: SCSER 12:07 | DX: J02.9 Acute pharyngitis, unspecified (principal); E11.9 Type 2 diabetes mellitus without complications; Z87.891 Personal history of nicotine dependence | CPT/HCPCS: 99282 ==

== ENCOUNTER 2018-03-17 05:49 | Emergency (ER) | payer OTHER, SELFPAY ==
[2018-03-17 06:03] LABS: Bilirubin Negative (Negative); Blood, Urine Negative (Negative); Clarity Clear (Clear); Glucose, Urine (Dipstick) Negative (Negative); Leukocyte Negative (Negative); Nitrite Negative (Negative); Protein, Urine (Dipstick) Negative (Neg-Trace); Specific Gravity, Urine 1.025 (1.005-1.030); Urobilinogen 0.2 mg/dL (0.2-1.0)
== END 2018-03-17 06:21 | disposition home or self-care (01) ==
LOC: SCSER 05:49
DX: R30.0 Dysuria (principal); E11.9 Type 2 diabetes mellitus without complications; Z87.891 Personal history of nicotine dependence
CPT/HCPCS: 81003; 87086; 99283